=== PATIENT | male | born 1965 | race Caucasian/White ===

== ENCOUNTER 2017-03-27 20:42 | Inpatient (IN) ==
[2017-03-27] MEDS ORDERED: SODIUM CHLORIDE 0.9% 1,000 ML IV STA ×2 (21:21→22:46)
[2017-03-27] MEDS ORDERED: ONDANSETRON 4 MG/2 ML VIAL IV STA ×2 (21:21→22:46)
[2017-03-27] MEDS ORDERED: ONDANSETRON 4 MG/2 ML VIAL ONE ×2 (21:29→23:01)
[2017-03-27 21:32] LABS: Basophils % 0.4 % (0.0-0.8); Eosinophils % 0.1 % (0.00-10.9); Hematocrit 45.7 VOL% (42.0-52.0); Hemoglobin 15.8 GM/DL (14.0-18.0); Immature Granulocytes % 0.4 %; Immature Granulocytes Absolute 0.03 #; Lymphocytes # 0.6 10*3/uL (1.4-4.0); Lymphocytes % 7.2 % (21.2-54.2); Mean Corpuscular HGB Conc 34.6 GM/DL (32-36); Mean Corpuscular Hemoglobin 32 PG (27-34); Mean Corpuscular Volume 92.5 FL (87-102); Mean Platelet Volume 11.5 FL (9.6-12.0); Monocytes # 0.7 10*3/uL (0.11-0.8); Monocytes % 8.7 % (1.7-12.7); Neutrophils % 83.2 % (38.7-73.9); Platelet Count 99 T/CUMM (130-400); Red Blood Count 4.94 MC/CUMM (3.8-5.5); Red Cell Distribution Width 14.6 % (9.3-17.3); White Blood Count 8.4 T/CUMM (4-12)
[2017-03-27 21:44] LABS: Albumin 3.9 G/DL (3.4-5.0); Bilirubin,Total 1.5 MG/DL (0.2-1.0); Calcium 9.4 MG/DL (8.5-10.1); Osmolality,Calculated 264.7 MOS/KG (273-304); Total Protein 7.3 G/DL (6.4-8.3)
--- NOTE | 2017-03-27 22:02 | Emergency Department Note ---
Garth Carreon Rolonda, am scribing for, and in the presence of, Chantel Mack DO 21: 23. IFrederick Debra, DO, personally performed the services described in this documentation, ascribed by Eunice Liang in my presence, and it is both accurate and complete . Arrival - Arrival Chief Complaint: Nausea/Vomiting/Diarrhea Stated Complaint: n/v ED Nursing Triage Note: Pt in with complaint of n/v x1 day. Pt has no other complaints at time of triage. Pt was given 200ml of normal saline per ems. Mode of Arrival: Stretcher Limitations: No Limitations Source: Patient, Old Records Reviewed, RN Notes Reviewed - History of Present Illness HPI Narrative: Pt is a 51 y/o male who presents to the ED via EMS for further evaluation of N/V /D with an onset of x1 day. Pt has a PMHx of HIV, HTN, and Hepatitis B. Pt states that he has been dry-heaving since last night. He states that he has not eaten today and has been losing weight. Pt confirms associated sxs of weakness. At time of triage pt's temperature was 100.2. No other complaint/pain in ED. Onset (ago): day(s) Consistency: constant Severity: moderate Severity scale (1-10): 4 Allergies/Adverse Reactions: Allergies Allergy/AdvReac Type Severity Reaction Status Date / Time atovaquone Allergy Intermediate RASH Verified 03/27/17 20:53 trimethoprim [From Bactrim] Allergy Intermediate SHORTNESS Verified 03/27/17 20: 53 OF BREATH Sulfa (Sulfonamide Allergy Unknown/Unable Verified 03/27/17 20:53 Antibiotics) to obtain sulfamethoxazole Allergy Unknown/Unable Verified 03/27/17 20:53 to obtain Sulfonylureas Allergy Unknown/Unable Verified 03/27/17 20:53 to obtain Home Medications: Home Medications Medication Instructions Recorded Confirmed Type Acyclovir [Acyclovir Cap/Tab] 400 mg PO BID 09/09/16 09/09/16 History Dolutegravir Sodium [Tivicay] 50 mg PO QAM 09/09/16 09/09/16 History Gabapentin 300 mg PO BEDTIME 09/09/16 09/09/16 History Ritonavir [Norvir] 100 mg PO Q12H 09/09/16 09/09/16 History Saquinavir Mesylate [Invirase] 1,000 mg PO BID 09/09/16 09/09/16 History Tenofovir Disoproxil Fumarate 300 mg PO QAM 09/09/16 09/09/16 History [Viread] Bisacodyl Tab [Dulcolax Tab] 10 mg PO DAILY PRN #0 tablet 09/10/16 Rx Docusate Sodium Cap [Colace Cap] 100 mg PO BID capsule 09/10/16 Rx Enoxaparin [Lovenox] 40 mg SUBCUT Q24H syringe 09/10/16 Rx Morphine Inj 2 mg IV Q4H PRN #0 syringe 09/10/16 Rx Ondansetron Inj [Zofran Inj] 4 mg IV Q4H PRN #0 vial 09/10/16 Rx Promethazine Tab [Phenergan Tab] 25 mg PO Q6H PRN #0 tablet 09/10/16 Rx Rifaximin [Xifaxan] 550 mg PO BID tablet 09/10/16 Rx Sodium Phosphate Enema [Fleet 133 ml RECTAL DAILY PRN #0 bottle 09/10/16 Rx Enema] Zaleplon [Sonata] 5 mg PO BEDTIME PRN #0 capsule 09/10/16 Rx Review of System - Review of System 12 point system: reviewed and no additional remarkable complaints except as stated - Review of System Constitutional: Present: fever, weakness, weight loss. Absent: chills Eyes: Absent: discharge Head/Ears/Nose/Throat: Absent: earache Respiratory: Absent: cough Cardiovascular: Absent: chest pain Gastrointestinal: Present: nausea, vomiting, diarrhea Genitourinary male: Absent: dysuria Musculoskeletal: Absent: arm pain Skin: Absent: rash Neurological: Absent: headache Psychiatric: Absent: anxiety Endocrine: Absent: cold intolerance Hematological/Lymphatic: Absent: easy bleeding Allergic/Immunologic: Absent: facial swelling Medical,Surgical,& Family Hx - Medical History Cardio: History of: Hypertension (Portal Hypertension) Psychological: History of: Anxiety Disorders, Depression (takes zoloft) Neurology: History of: Seizures Respiratory: History of: Pulmonary Hypertension, Pneumonia Renal: History of: Renal Problems (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) Gastrointestinal: History of: Esophageal Varices, GERD, Hepatitis (hep b), Liver Problems (portal hypertension), GI Problems (liver cirrhosis, gastritis) Musculoskeletal: History of: Back/Neck Problems (lower back problems) Hematology: History of: Anemia, Clotting Problems (hx dvts) Other: History of: HIV, Miscellaneous Medical Problems (liver disease) - Surgical History HEENT Surgeries: Patient denies: Tonsilectomy & Adenoidectomy Abdominal Surgeries: Surgical HX of: Abdominal Surgery (laporascopic surgery- abdominal surgery 1 year ago), Colonoscopy, EGD - Family History Family History: Reports;: Family Cancer (mom-breast & colon, skin), Family Heart Disease (dad), Family Hypertension (mom and dad) Denies;: Family Anesthesia Reaction, Family Diabetes, Family Psychiatric Problems, Family Stroke - Social History Smoking Status: Never smoker Frequency of Alcohol Use: None Type of Drug Use: None Exam Vital Signs: Vital Signs Temperature 100.2 F H 03/27/17 20:43 Pulse Rate 77 03/27/17 20:43 Respiratory Rate 18 03/27/17 20:43 Blood Pressure 100/66 03/27/17 20:43 O2 Sat by Pulse Oximetry 100 03/27/17 20:43 - General General appearance: alert, in no apparent distress, cachectic - Head Head exam: Present: atraumatic, normocephalic - Eye Eye exam: Present: PERRL, EOMI - ENT ENT exam: Present: mucous membranes dry. Absent: mucous membranes moist - Neck Neck exam: Present: full ROM. Absent: tenderness - Chest Chest inspection: Present: symmetric chest wall rise. Absent: tenderness - Respiratory Respiratory exam: Present: normal lung sounds bilaterally. Absent: wheezes - Cardiovascular Cardiovascular exam: Present: normal rhythm, tachycardia - Abdominal Exam Abdominal exam: Present: tenderness (mild diffused) - Extremities Exam Extremities exam: Present: full ROM. Absent: tenderness - Back Exam Back exam: Present: full ROM. Absent: tenderness - Neurological Exam Neurological exam: Present: alert, oriented X3, CN II-XII intact - Psychiatric Psychiatric exam: Present: normal affect, normal mood - Skin Skin exam: Present: warm, dry, intact, normal color. Absent: rash Course Course Narrative: Spoke with hospitalist who will admit patient for nausea vomiting diarrhea. Patient does have an anion gap lactic acid was ordered. Patient stable at this time Results - Labs CBC & BMP: 03/27/17 20:47 03/27/17 20:47 Lab Results: I have reviewed the patients labs Disposition Clinical Impression: Gastroenteritis Case discussed with: patient Disposition: Still a Patient Condition: Stable Time of Disposition: 22:35
[2017-03-27] MEDS ORDERED: HYDROmorphone 2 MG/1 ML VIAL IV STA (22:46)
[2017-03-27] MEDS ORDERED: HYDROmorphone 2 MG/1 ML VIAL ONE (23:02)
[2017-03-27 23:39] LABS: Apearance,Urine Slightly Hazy (Clear); Bilirubin,Urine Negative (Negative); Blood, Urine Negative (Negative); Glucose,Urine (UA) 50 mg/dL (Negative); Ketones,Urine 80 mg/dL (Negative); Mucus,Urine Many /LPF (Occasional); Nitrite,Urine Negative (Negative); Protein,Urine 100 MG/DL; RBC,Urine 1 /HPF (0-4); Squamous Epithelial Cell,Urine Occasional /HPF (0-10); Urine Color Yellow (Yellow); Urine Specific Gravity 1.025 (1.001-1.035); Urine Urobilinogen < 2.0 EU/DL (0.2-1.0); WBC,Urine 2 /HPF (0-6)
--- NOTE | 2017-03-27 23:58 | Hospitalist History & Physical ---
<Brynn Zepeda - Last Filed: 03/27/17 23:46> Assessment and Plan (1) Dehydration Status: Acute Assessment and plan: Has received 2L of NS Will give an additional liter Maintenance infusion @ 150mL/hr Repeat lactate Will repeat Chemistry once lactate is cleared to check anion gap Will check serum ketones Current Visit: Yes (2) Abdominal pain Status: Acute Assessment and plan: CT abd/pelvis pending Will consult GI and surgery Pain and nausea medications PRN Current Visit: Yes Qualifiers: Abdominal location: generalized Qualified Code(s): R10.84 - Generalized abdominal pain (3) Fever Status: Acute Assessment and plan: Blood and urine cultures pending Febrile Will start Cipro 600mg IV Tylenol for fever PRN Current Visit: Yes (4) AIDS (acquired immunodeficiency syndrome), CD4 <=200 Status: Chronic Assessment and plan: Will obtain CD 4 count Current Visit: No (5) Cirrhosis Status: Chronic Current Visit: No (6) Malrotation of intestine Status: Chronic Current Visit: Yes History of Present Illness Chief complaint: nausea and vomiting History of present illness: Called to the ER for Mr. Zapien who is a 51 year old male that presents to the ED for diffuse abdominal pain, multiple episodes of nausea and vomiting that started last night. The vomiting and dry heaving continued throughout the day which made him seek medical treatment. In the ER, he received 2L of NS, Zofran 4mg IV x2 doses, and blood work. He was febrile of 102 upon presentation and slightly hypotensive with BP 90's. All of this blood work looks fairly normal compared to his baseline except for a lactate of 3.0. A CT abd/pelvis is pending. The patient has a history of HIV, nonalcoholic liver disease, DVT, portal hypertension, SBO, frozen abdomen, and PCP. He states his last CD4 count was 114 in January 2017 and is on HARRT medications. He has presented with abdominal pain here before and he was found to have a SBO. Surgery was consulted but was deemed inoperable due to cirrhosis and risk of bleeding to . He was transferred to [facility] for treatment. We will obtain records from this facility. He will be admitted under the hospitalist service. Home Medications Medication Instructions Recorded Confirmed Type Acyclovir [Acyclovir Cap/Tab] 400 mg PO BID 09/09/16 09/09/16 History Dolutegravir Sodium [Tivicay] 50 mg PO QAM 09/09/16 09/09/16 History Gabapentin 300 mg PO BEDTIME 09/09/16 09/09/16 History Ritonavir [Norvir] 100 mg PO Q12H 09/09/16 09/09/16 History Saquinavir Mesylate [Invirase] 1,000 mg PO BID 09/09/16 09/09/16 History Tenofovir Disoproxil Fumarate 300 mg PO QAM 09/09/16 09/09/16 History [Viread] Bisacodyl Tab [Dulcolax Tab] 10 mg PO DAILY PRN #0 tablet 09/10/16 Rx Docusate Sodium Cap [Colace Cap] 100 mg PO BID capsule 09/10/16 Rx Enoxaparin [Lovenox] 40 mg SUBCUT Q24H syringe 09/10/16 Rx Morphine Inj 2 mg IV Q4H PRN #0 syringe 09/10/16 Rx Ondansetron Inj [Zofran Inj] 4 mg IV Q4H PRN #0 vial 09/10/16 Rx Promethazine Tab [Phenergan Tab] 25 mg PO Q6H PRN #0 tablet 09/10/16 Rx Rifaximin [Xifaxan] 550 mg PO BID tablet 09/10/16 Rx Sodium Phosphate Enema [Fleet 133 ml RECTAL DAILY PRN #0 bottle 09/10/16 Rx Enema] Zaleplon [Sonata] 5 mg PO BEDTIME PRN #0 capsule 09/10/16 Rx Allergies Allergy/AdvReac Type Severity Reaction Status Date / Time atovaquone Allergy Intermediate RASH Verified 03/27/17 20:53 trimethoprim [From Bactrim] Allergy Intermediate SHORTNESS Verified 03/27/17 20: 53 OF BREATH Sulfa (Sulfonamide Allergy Unknown/Unable Verified 03/27/17 20:53 Antibiotics) to obtain sulfamethoxazole Allergy Unknown/Unable Verified 03/27/17 20:53 to obtain Sulfonylureas Allergy Unknown/Unable Verified 03/27/17 20:53 to obtain Medical,Surgical,& Family Hx - Medical History Cardio: History of: Hypertension (Portal Hypertension) Psychological: History of: Anxiety Disorders, Depression (takes zoloft) Neurology: History of: Seizures Respiratory: History of: Pulmonary Hypertension, Pneumonia Renal: History of: Renal Problems (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) Gastrointestinal: History of: Esophageal Varices, GERD, Hepatitis (hep b), Liver Problems (portal hypertension), GI Problems (liver cirrhosis, gastritis) Musculoskeletal: History of: Back/Neck Problems (lower back problems) Hematology: History of: Anemia, Clotting Problems (hx dvts) Other: History of: HIV, Miscellaneous Medical Problems (liver disease) - Surgical History HEENT Surgeries: Patient denies: Tonsilectomy & Adenoidectomy Abdominal Surgeries: Surgical HX of: Abdominal Surgery (laporascopic surgery- abdominal surgery 1 year ago), Colonoscopy, EGD - Family History Family History: Reports;: Family Cancer (mom-breast & colon, skin), Family Heart Disease (dad), Family Hypertension (mom and dad) Denies;: Family Anesthesia Reaction, Family Diabetes, Family Psychiatric Problems, Family Stroke - Social History Smoking Status: Never smoker Frequency of Alcohol Use: None Type of Drug Use: None Marital Status: Single Lives With:: Alone Functional capacity: independent ambulation - Constitutional Constitutional: Present: anorexia, chills, fatigue, fever(s), weakness, weight loss - EENT Eyes: Absent: blurry vision Nose, mouth and throat: Absent: dysphagia, hoarseness, sore throat - Cardiovascular Cardiovascular: Absent: chest pain at rest, chest pain with activity, claudication, diaphoresis, dyspnea on exertion - Respiratory Respiratory: Absent: cough, dyspnea - Gastrointestinal Gastrointestinal: Present: abdominal pain, nausea, vomiting. Absent: change in bowel habits, constipation - Genitourinary Genitourinary: Absent: difficulty urinating Exam - Constitutional Vitals: Period Temp Pulse Resp BP Sys/Bynum Pulse Ox Last 24 Hr 100.2 F-100.2 F 77-77 18-18 100-100/66-66 100 General appearance: mild distress, cachectic - Head Head exam: Present: normal inspection, normocephalic - Eye Eye exam: Present: EOMI Pupils: Present: DIANA, normal accommodation - Neck Neck exam: Present: normal inspection - Respiratory Respiratory exam: Present: clear to auscultation bilaterally. Absent: accessory muscle use (Respirations even and non-labored with symmterical rise and fall of chest noted. ) - Cardiovascular Cardiovascular exam: Present: regular rate and rhythm - GI/Abdominal GI/Abdominal exam: Present: distended, hypoactive bowel sounds, tenderness, soft - Extremities Exam Extremities exam: Present: normal inspection, normal capillary refill - Back Exam Back exam: Present: normal inspection - Neurological Exam Neurological exam: Present: alert (Able to answer questions appropriately. Makes good eye contact. ), oriented X3 - Psychiatric Psychiatric exam: Present: agitated - Skin Skin exam: Present: normal color, warm, dry, intact Results - Labs CBC & BMP: 03/27/17 20:47 03/27/17 20:47 Lab Results: I have reviewed the past 24 hour labs <Jarad Mayo - Last Filed: 03/28/17 02:36> Assessment and Plan (1) Partial small bowel obstruction Status: Acute Assessment and plan: I saw and examined the patient in conjunction with nurse practitioner Brynn Zepeda as above he has history of admission here back in October with similar problem at that time with small obstruction per as above he was found to have a frozen abdomen and was transferred to [facility] for further treatment. Patient says he was told there that nothing could be done for him. It apparently resolved. He presented today with the same symptoms. He also had a temperature to 100.2. Blood cultures have been ordered. Laboratories are unremarkable except for sodium of 131. Creatinine was 1.2. Abdominal CT shows small bowel obstruction plus venous thrombosis bilateral iliac and femoral veins. He has a history of DVT and is on Coumadin he states. We will continue this. INR is pending. If it is subtherapeutic will give full dose Lovenox until INR is therapeutic. Clindamycin was listed as 1 of his meds but says he has not been on it for some time. Unfortunately we still do not have an accurate list of his current medications. Order was placed to query his pharmacy tomorrow for a list. We will start Levaquin and Flagyl for his fever. Surgery has been consulted. Will consult ID as well. He was bolused 3 L normal saline. He is currently on normal saline at 150 an hour per we will cut this to 100 cc/h. On exam he is awake, alert. Mucous membranes orally are dry. Abdomen is mildly distended and mildly tender. Bowel sounds are present Current Visit: No History of Present Illness History of present illness: Mr. Zapien is a 51 year old male Exam - Constitutional Vitals: Period Temp Pulse Resp BP Sys/Bynum Pulse Ox Last 24 Hr 100.2 F-100.2 F 72-77 13-18 100-120/66-71 100-100 Results - Labs CBC & BMP: 03/27/17 20:47 03/27/17 20:47
[2017-03-28] MEDS ORDERED: ACETAMINOPHEN 325 MG TABLET PO PRN (00:32)
[2017-03-28] MEDS ORDERED: HYDROmorphone 2 MG/1 ML VIAL IV PRN (00:32)
[2017-03-28] MEDS ORDERED: SODIUM CHLORIDE 0.9% 1,000 ML IV SCH (00:32)
[2017-03-28] MEDS ORDERED: DOCUSATE SODIUM 100 MG CAPSULE PO PRN (00:32)
[2017-03-28] MEDS ORDERED: PROCHLORPERAZINE 5 MG TABLET PO PRN (00:35)
[2017-03-28] MEDS ORDERED: CLINDAMYCIN INJ 600 MG in PREMIX 1 EACH IV SCH (01:00)
[2017-03-28 02:25] LABS: Basophils % 0.4 % (0.0-0.8); Hematocrit 39.3 VOL% (42.0-52.0); Hemoglobin 13.6 GM/DL (14.0-18.0); Immature Granulocytes % 0.3 %; Immature Granulocytes Absolute 0.02 #; Lymphocytes # 0.7 10*3/uL (1.4-4.0); Lymphocytes % 10.1 % (21.2-54.2); Mean Corpuscular HGB Conc 34.6 GM/DL (32-36); Mean Corpuscular Hemoglobin 33 PG (27-34); Mean Corpuscular Volume 95.9 FL (87-102); Monocytes # 0.6 10*3/uL (0.11-0.8); Monocytes % 8.3 % (1.7-12.7); Neutrophils # 5.8 10*3/uL (1.4-7.4); Neutrophils % 80.9 % (38.7-73.9); Red Cell Distribution Width 14.8 % (9.3-17.3); White Blood Count 7.1 T/CUMM (4-12)
[2017-03-28 02:32] LABS: Platelet Count 90 T/CUMM (130-400)
[2017-03-28 02:38] LABS: INR 1.4; PT Patient Result 14.6 SECS; Partial Thromboplastin Time 29.1 SECS (0-40)
[2017-03-28 03:00] LABS: Albumin 3.3 G/DL (3.4-5.0); Bilirubin,Total 0.9 MG/DL (0.2-1.0); Calcium 8.2 MG/DL (8.5-10.1); Osmolality,Calculated 269.4 MOS/KG (273-304); Potassium 4.6 MMOL/L (3.5-5.1); Total Protein 6.2 G/DL (6.4-8.3)
[2017-03-28] MEDS: ONDANSETRON 4 MG/2 ML VIAL IV PRN ×4 (03:02→22:03)
[2017-03-28 03:10] LABS: Magnesium 1.9 MG/DL (1.8-2.4); Risk Ratio 2.39; Thyroid Stimulating Hormone 0.714 uIU/ml (0.358-3.74); VLDL CHOLESTEROL 17.2 MG/DL
[2017-03-28] MEDS: SODIUM CHLORIDE 0.9% 1,000 ML IV SCH ×3 (03:13→22:14)
[2017-03-28] MEDS: ENOXAPARIN 60 MG/0.6 ML SYRINGE SUBCUT SCH ×2 (03:13→16:02)
[2017-03-28] MEDS: LEVOFLOXACIN INJ 500 MG in PREMIX 1 EACH IV SCH (03:17)
[2017-03-28] MEDS: metroNIDAZOLE INJ 500 MG in PREMIX 1 EACH IV SCH ×4 (04:51→22:15)
[2017-03-28 07:00] LABS: INR 1.4; PT Patient Result 14.9 SECS
--- NOTE | 2017-03-28 08:24 | CT Report ---
Exam: CT abdomen and pelvis with and without intravenous contrast Exam date: 03/27/2017 10:46 PM Clinical History: 51 years,Male, right upper quadrant, abdominal pain, generalized Technique: Axial computed tomography images of the abdomen and pelvis with and without intravenous contrast. All CT scans at this facility use one or more dose reduction techniques. Automated exposure control, MA/KV adjustment per patient size (including targeted exam Square dose is matched to indication) or iterative reconstruction technique Comparison: September 09, 2016 Findings: Lower thorax: No acute pathology within the lung bases. Abdomen: Liver: Atrophic. Heterogeneous in attenuation and enhancement. No focal parenchymal abnormalities Gallbladder and bile ducts: Unremarkable. No calcified stones. No ductal dilatation. Pancreas: Pancreas is normal. Spleen: Spleen remains enlarged. Adrenals: No adrenal mass. Kidneys and ureters: Stable right hydronephrosis Stomach and bowel: There is again loops of dilated central small bowel within the upper to midabdomen with wall enhancement and trace edema within the adjacent mesentery. There is again mild gastric wall thickening, unchanged. Appendix: Not clearly visualized. No secondary findings to suggest appendicitis. Pelvis: Bladder: Mild urinary bladder wall thickening Reproductive: Unremarkable as visualized. Abdomen and pelvis: Intraperitoneal space: No pneumoperitoneum. No free intraperitoneal fluid Bones/joints: No acute osseous abnormality. Soft tissues: No mass Vasculature: No aortic aneurysm. Atheromatous calcifications noted along the aorta and branch vessels. Note is made of low attenuation within the bilateral femoral and iliac veins, venous thrombosis cannot be excluded. Gastric varices as well as recanalized umbilical vein is again noted Lymph nodes: No adenopathy Impression: 1. Dilated loops of enhancing small bowel within the midabdomen relatively unchanged in a configuration and appearance suggesting partial small bowel obstruction. Cannot exclude internal hernia 2. Cirrhosis with portal venous hypertension 3. Filling defects within the bilateral femoral and iliac veins, findings may represent flow artifact, cannot exclude venous thrombosis. Correlate with dedicated vascular ultrasound 4. Urinary bladder wall thickening, correlate with urinalysis for possible cystitis PROCEDURE INTERPRETED AT [facility] DEPARTMENT OF RADIOLOGY Final Report Signed by: Tutu Fortune
[2017-03-28] MEDS ORDERED: ENOXAPARIN 40 MG/0.4 ML SYRINGE SUBCUT SCH (09:00)
[2017-03-28] MEDS ORDERED: MAGNESIUM HYDROXIDE SUSP 30 ML UDCUP PO PRN (09:45)
[2017-03-28] MEDS ORDERED: MAGNESIUM HYDROXIDE SUSP 30 ML UDCUP PO ONE (09:45)
[2017-03-28] MEDS ORDERED: BISACODYL 5 MG TABLET PO ONE (09:49)
--- NOTE | 2017-03-28 09:52 | Event Note ---
CT abdomen and pelvis significant persistent moderate to severe dilatation and distortion of the proximal central small bowel, suggestive of persistent small bowel obstruction. In addition there was an unusual amount of stool in the colon. We will initiate an aggressive bowel management program. We will give milk of magnesia 60 mL, soapsuds enema to clear, and bisacodyl 15 mg p.o. We will reassess bowel status in a.m.
[2017-03-28] MEDS: PANTOPRAZOLE 40 MG TABLET PO SCH (09:54)
--- NOTE | 2017-03-28 10:52 | XRay Report ---
Portable chest Exam date: 03/28/2017 12:32 AM Indication: Shortness of breath, cough Comparison: August 18, 2015 Findings: Cardiomediastinal contours are normal. Lungs are clear bilaterally. No acute osseous abnormalities. Visualized upper abdomen demonstrates no acute pathology. Impression: Normal chest PROCEDURE INTERPRETED AT [facility] DEPARTMENT OF RADIOLOGY Final Report Signed by: Tutu Fortune
--- NOTE | 2017-03-28 11:26 | General Surgery Consult Note ---
Assessment and Plan - Time spent with patient Time spent with patient: Less than 30 minutes (1) Partial small bowel obstruction Status: Acute Assessment and plan: Impression: 1. Nausea and vomiting abdominal pain probably secondary to a partial small bowel obstruction. Recurrent 2. Moderate constipation Plan: 1. Observation IV fluids 2. Will discuss this case with Dr. Brown attempted surgery on him in the past ran to a great deal of bleeding. 3. Difficult to say that we can safely do surgery because of his risk of bleeding on this particular patient and attempt to try to take care of any blockages that he might have. Current Visit: No (2) History of HIV or AIDS Status: Chronic Assessment and plan: Impression: History of HIV infection Plans: Medical management Current Visit: No (3) Cirrhosis Status: Chronic Assessment and plan: Impression: 1. Cirrhosis with splenomegaly and gastric varices \Plan: Medical management but cautious option circulation of this situation because of the high risk of bleeding with any type of surgical intervention. Current Visit: No History of Present Illness Chief complaint: Recurrent nausea and vomiting and abdominal pain History of present illness: Mr. Zapien is a 51 year old male white male with cirrhosis and HIV who returns with a recurrent episode of nausea and vomiting going on for several days which he was admitted at this time. CT scan abdomen pelvis suggest partial bowel obstruction mid abdomen. Patient has a history of having cirrhosis with gastric varices and splenomegaly up at this point time. Etiology of this is unclear the patient indicates he was told he had malrotation. This apparently comes from the fact that he had had surgery by Dr. Spencer in 2015 but surgery could not be safely performed because of severe bleeding related to his liver. His clotting times look okay without being unusually abnormal at this point. Certainly his varices is a major concern probably can involve the small bowel also. He is nauseated at this time with some crampy pains although the bowel sounds sound fairly normal at this point. He apparently been given a bunch laxative making him more comfortable so we just got a hold on that right now see what he does keep him n.p.o. Will review the situation with to look on Wednesday to cannot figure out what was going on at the time he did surgery see if he can avoid picking back up. Home Medications Medication Instructions Recorded Confirmed Type Acyclovir [Acyclovir Cap/Tab] 400 mg PO BID 09/09/16 09/09/16 History Dolutegravir Sodium [Tivicay] 50 mg PO QAM 09/09/16 09/09/16 History Gabapentin 300 mg PO BEDTIME 09/09/16 09/09/16 History Ritonavir [Norvir] 100 mg PO Q12H 09/09/16 09/09/16 History Saquinavir Mesylate [Invirase] 1,000 mg PO BID 09/09/16 09/09/16 History Tenofovir Disoproxil Fumarate 300 mg PO QAM 09/09/16 09/09/16 History [Viread] Bisacodyl Tab [Dulcolax Tab] 10 mg PO DAILY PRN #0 tablet 09/10/16 Rx Docusate Sodium Cap [Colace Cap] 100 mg PO BID capsule 09/10/16 Rx Enoxaparin [Lovenox] 40 mg SUBCUT Q24H syringe 09/10/16 Rx Morphine Inj 2 mg IV Q4H PRN #0 syringe 09/10/16 Rx Ondansetron Inj [Zofran Inj] 4 mg IV Q4H PRN #0 vial 09/10/16 Rx Promethazine Tab [Phenergan Tab] 25 mg PO Q6H PRN #0 tablet 09/10/16 Rx Rifaximin [Xifaxan] 550 mg PO BID tablet 09/10/16 Rx Sodium Phosphate Enema [Fleet 133 ml RECTAL DAILY PRN #0 bottle 09/10/16 Rx Enema] Zaleplon [Sonata] 5 mg PO BEDTIME PRN #0 capsule 09/10/16 Rx Allergies Allergy/AdvReac Type Severity Reaction Status Date / Time atovaquone Allergy Intermediate RASH Verified 03/27/17 20:53 trimethoprim [From Bactrim] Allergy Intermediate SHORTNESS Verified 03/27/17 20: 53 OF BREATH Sulfa (Sulfonamide Allergy Unknown/Unable Verified 03/27/17 20:53 Antibiotics) to obtain sulfamethoxazole Allergy Unknown/Unable Verified 03/27/17 20:53 to obtain Sulfonylureas Allergy Unknown/Unable Verified 03/27/17 20:53 to obtain Medical,Surgical,& Family Hx - Medical History Cardio: History of: Hypertension (Portal Hypertension) Psychological: History of: Anxiety Disorders, Depression (takes zoloft) Neurology: History of: Seizures Respiratory: History of: Pulmonary Hypertension, Pneumonia No history of: Obstructive Sleep Apnea Renal: History of: Renal Problems (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) Gastrointestinal: History of: Esophageal Varices, GERD, Hepatitis (hep b), Liver Problems (portal hypertension), GI Problems (liver cirrhosis, gastritis) Musculoskeletal: History of: Back/Neck Problems (lower back problems) Hematology: History of: Anemia, Clotting Problems (hx dvts) Other: History of: HIV, Miscellaneous Medical Problems (liver disease) - Surgical History Cardiac Surgeries: Patient Denies: Femoral-Popliteal Bypass Graft, Cardiac Catheterization, Cardiac Surgery, Carotid Endarterectomy, Internal Defibrillator, Vascular Access Devices Thoracic Surgeries: Patient denies;: Lobectomy Neurologic Surgeries: Patient denies: Neurologic Surgery HEENT Surgeries: Patient denies: Carotid Endarterectomy, Tonsilectomy & Adenoidectomy Abdominal Surgeries: Surgical HX of: Abdominal Surgery (laporascopic surgery- abdominal surgery 1 year ago), Colonoscopy, EGD Patient denies: Splenectomy - Family History Family History: Reports;: Family Cancer (mom-breast & colon, skin), Family Heart Disease (dad), Family Hypertension (mom and dad) Denies;: Family Anesthesia Reaction, Family Diabetes, Family Psychiatric Problems, Family Stroke - Social History Smoking Status: Never smoker Frequency of Alcohol Use: None Type of Drug Use: None 12 point system: reviewed and no additional remarkable complaints except as stated Exam - Constitutional Vitals: Period Temp Pulse Resp BP Sys/Bynum Pulse Ox Last 24 Hr 97.2 F-100.2 F 71-77 13-18 100-120/62-90 71-100 General appearance: mild distress - Head Head exam: Present: normal inspection - ENT ENT exam: Present: normal exam Mouth exam: Absent: dry mucosa - Neck Neck exam: Present: normal inspection - Respiratory Respiratory exam: Present: clear to auscultation bilaterally, rales - Cardiovascular Cardiovascular exam: Present: RRR - GI/Abdominal GI/Abdominal exam: Present: distended (Epigastric), hypoactive bowel sounds, tenderness (Epigastric area), soft - Extremities Exam Extremities exam: Present: normal inspection - Back Exam Back exam: Present: normal inspection - Neurological Exam Neurological exam: Present: alert, oriented X3, CN II-XII intact - Skin Skin exam: Present: normal color, warm, dry Results - Labs CBC & BMP: 03/28/17 02:10 03/28/17 02:10 Lab Results: I have reviewed the past 24 hour labs - Diagnostic Findings Procedure: CT Abdomen and Pelvis: report reviewed by me
--- NOTE | 2017-03-28 11:45 | Gastrointestinal Consult Note ---
Assessment and Plan - Time spent with patient Time spent with patient: Greater than 30 minutes (1) Partial small bowel obstruction Status: Acute Current Visit: No (2) Cirrhosis Status: Chronic Current Visit: No (3) Other specified counseling Status: Acute Current Visit: Yes History of Present Illness History of present illness: Mr. Zapien is a 51 year old male Home Medications Medication Instructions Recorded Confirmed Type Acyclovir [Acyclovir Cap/Tab] 400 mg PO BID 09/09/16 09/09/16 History Dolutegravir Sodium [Tivicay] 50 mg PO QAM 09/09/16 09/09/16 History Gabapentin 300 mg PO BEDTIME 09/09/16 09/09/16 History Ritonavir [Norvir] 100 mg PO Q12H 09/09/16 09/09/16 History Saquinavir Mesylate [Invirase] 1,000 mg PO BID 09/09/16 09/09/16 History Tenofovir Disoproxil Fumarate 300 mg PO QAM 09/09/16 09/09/16 History [Viread] Bisacodyl Tab [Dulcolax Tab] 10 mg PO DAILY PRN #0 tablet 09/10/16 Rx Docusate Sodium Cap [Colace Cap] 100 mg PO BID capsule 09/10/16 Rx Enoxaparin [Lovenox] 40 mg SUBCUT Q24H syringe 09/10/16 Rx Morphine Inj 2 mg IV Q4H PRN #0 syringe 09/10/16 Rx Ondansetron Inj [Zofran Inj] 4 mg IV Q4H PRN #0 vial 09/10/16 Rx Promethazine Tab [Phenergan Tab] 25 mg PO Q6H PRN #0 tablet 09/10/16 Rx Rifaximin [Xifaxan] 550 mg PO BID tablet 09/10/16 Rx Sodium Phosphate Enema [Fleet 133 ml RECTAL DAILY PRN #0 bottle 09/10/16 Rx Enema] Zaleplon [Sonata] 5 mg PO BEDTIME PRN #0 capsule 09/10/16 Rx Allergies Allergy/AdvReac Type Severity Reaction Status Date / Time atovaquone Allergy Intermediate RASH Verified 03/27/17 20:53 trimethoprim [From Bactrim] Allergy Intermediate SHORTNESS Verified 03/27/17 20: 53 OF BREATH Sulfa (Sulfonamide Allergy Unknown/Unable Verified 03/27/17 20:53 Antibiotics) to obtain sulfamethoxazole Allergy Unknown/Unable Verified 03/27/17 20:53 to obtain Sulfonylureas Allergy Unknown/Unable Verified 03/27/17 20:53 to obtain Medical,Surgical,& Family Hx - Medical History Cardio: History of: Hypertension (Portal Hypertension) Psychological: History of: Anxiety Disorders, Depression (takes zoloft) Neurology: History of: Seizures Respiratory: History of: Pulmonary Hypertension, Pneumonia No history of: Obstructive Sleep Apnea Renal: History of: Renal Problems (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) Gastrointestinal: History of: Esophageal Varices, GERD, Hepatitis (hep b), Liver Problems (portal hypertension), GI Problems (liver cirrhosis, gastritis) Musculoskeletal: History of: Back/Neck Problems (lower back problems) Hematology: History of: Anemia, Clotting Problems (hx dvts) Other: History of: HIV, Miscellaneous Medical Problems (liver disease) - Surgical History Cardiac Surgeries: Patient Denies: Femoral-Popliteal Bypass Graft, Cardiac Catheterization, Cardiac Surgery, Carotid Endarterectomy, Internal Defibrillator, Vascular Access Devices Thoracic Surgeries: Patient denies;: Lobectomy Neurologic Surgeries: Patient denies: Neurologic Surgery HEENT Surgeries: Patient denies: Carotid Endarterectomy, Tonsilectomy & Adenoidectomy Abdominal Surgeries: Surgical HX of: Abdominal Surgery (laporascopic surgery- abdominal surgery 1 year ago), Colonoscopy, EGD Patient denies: Splenectomy - Family History Family History: Reports;: Family Cancer (mom-breast & colon, skin), Family Heart Disease (dad), Family Hypertension (mom and dad) Denies;: Family Anesthesia Reaction, Family Diabetes, Family Psychiatric Problems, Family Stroke - Social History Smoking Status: Never smoker Frequency of Alcohol Use: None Type of Drug Use: None Exam - Constitutional Vitals: Period Temp Pulse Resp BP Sys/Ybnum Pulse Ox Last 24 Hr 97.2 F-100.2 F 71-77 13-18 100-120/62-90 71-100 Results - Labs CBC & BMP: 03/28/17 02:10 03/28/17 02:10 Note Addendum: PLEASE NOTE -- automatic citation of patient information is unavoidable in this electronic note. I have made a reasonable effort to review the information cited , but it is not a part of my evaluation, impression, or recommendation unless specifically discussed in the dictated text that follows. As well, voice recognition software was used in the creation of this clinical note. Reasonable effort was made to identify and correct gross errors. Despite proofreading, errors in instrument worker may be present, including nonsense verbiage at times. If you encounter such an error, please contact me at for discussion and correction. -- Dinesh Chief complaint: abdominal pain History of present illness: This is a new patient, a 51-year-old male seen by consultation for evaluation of abdominal pain and suspected small bowel obstruction. The patient is admitted to the hospitalist service under the care of Dr. Melchor with a primary diagnosis of dehydration and abdominal pain. The patient was admitted through the emergency department last evening with primary complaint of nausea, vomiting, abdominal pain. Evaluation at that time revealed minimally elevated lactate with radiologic evidence of dilated small bowel suggesting partial small bowel obstruction. The patient reports his usual state of health prior to this past Wednesday when he began to feel bloated and nauseous. This progressed through the course of the day prompting him to seek medical care on Wednesday. Since admission, he has been treated with crystalloid resuscitation and antibiotic. He is not feeling much better at present with continued nausea. He has been seen by general surgery with some discussion of surgical management but more to follow on that. He does not have nasogastric decompression ongoing but has been told this will be forthcoming. He has not had a bowel movement and does not seem to be passing gas, best he can tell. He has had episodes such as this before that have always responded to decompression. Patient denies night sweats, rigors, headache, dizziness, neck pain, visual changes, redness of the eyes, dysphagia, odynophagia, difficulty chewing, chest pain, hematemesis, diarrhea, hematochezia, melena, proctalgia, constipation, dysuria, skin changes, temperature regulation issues, flushing, easy bleeding/ bruising, mental status change, numbness/weakness in the extremities, yellowing of the eyes/skin, cutaneous eruptions, family history of gastrointestinal cancer and colon polyps, and other complaints in general. Review of systems: 12 point review of systems was negative except as documented above. Outpatient medications: Viread, invirase, norvir, Rifaximin, Phenergen, Zofran, morphine, gabapentin, Lovenox, tivicay, Colace, Dulcolax, acyclovir Inpatient medications: Tylenol, Colace, Lovenox, [place], Dilaudid, levofloxacin, milk of magnesia, Flagyl, Zofran, Protonix, Compazine, normal saline infusion Past Medical History: human immunodeficiency virus, hypertension, anxiety disorder, depression, seizure disorder, pulmonary hypertension, pneumonia, chronic kidney disease, cirrhosis with portal hypertension, esophageal varices, gastroesophageal reflux disease, hepatitis B, chronic low back pain, deep venous thrombosis Social history: negative tobacco. Negative alcohol Family history: no gastrointestinal cancers Physical examination: Vital Signs: Current vital signs reviewed and documented above. General Appearance: lying in bed. Obviously uncomfortable. Emesis bag in hand. Head: Normocephalic. Neck: Palpation of the neck revealed no abnormalities. Eyes: No scleral icterus. No scleral injection. No conjunctival pallor. Oral Cavity: Odor of breath was normal. No drooling was observed. Lips showed no abnormalities. Floor of the mouth showed no abnormalities. Pharynx: Oropharynx was normal. Lungs: Respiration rhythm and depth was normal. Cardiovascular: Heart rate and rhythm were normal. Abdomen: abdomen was moderately distended. Abdominal palpation revealed mild tenderness and no hepatosplenomegaly. Ascites was not discovered. Abdominal auscultation revealed decreased bowel sounds. Musculoskeletal System: Musculoskeletal system was grossly normal. Neurological: level of consciousness was normal. Speech was normal. Skin: General appearance was normal. Color and pigmentation were normal. No skin lesions. Laboratory: hemoglobin 13.6, white blood count 7.1, MCV 96, platelets 90, INR 1.4, PT 14.9, ALT 36, AST 29, total bilirubin 0.9, albumin 3.3 Radiology: CT of the abdomen and pelvis, 03/27/17 -- [place] loops of enhancing small bowel in the mid-abdomen consistent with small bowel obstruction; cirrhosis with portal venous hypertension; filling defects in bilateral femoral and iliac veins; urinary bladder wall thickening Impressions: #1. Partial small bowel obstruction -- general surgery is consulting and considering surgical options. They have recommended supportive care including nasogastric decompression for now and this is reasonable in my opinion. There is no indication for endoscopic evaluation at present. #2. Cirrhosis -- the patient appears compensated at present. I recommend continued volume and electrolyte management with careful monitoring to avoid decompensation in the becky-surgical setting. #3. Other specified counseling -- The patient was seen for greater than 30 minutes. The patient was counseled for greater than 50% of this time regarding differential diagnosis, likely diagnosis, diagnostic and therapeutic alternatives, risks/benefits/alternatives of medications and procedures, and plan of care generally. The patient expressed understanding and wishes to proceed. Recommendations: -- continued resuscitation -- agree with nasogastric decompression -- agree with antibiotic -- further management per general surgery -- thank you for this consultation. Dr. Fraser will assume G.I. care for this patient tomorrow
[2017-03-28] MEDS ORDERED: PROMETHAZINE 25 MG/1 ML VIAL IM ONE (12:46)
--- NOTE | 2017-03-28 17:27 | XRay Report ---
Portable chest Exam date: 03/28/2017 4:58 PM Indication: Shortness of breath, cough Comparison: Not available Findings: Limited study. Exclusion of the lung apices Cardiomediastinal contours are normal. Visualized lung parenchyma is well aerated. Satisfactory placement of esophageal gastric tube extending over the right upper abdomen. No acute osseous abnormalities. Visualized upper abdomen demonstrates no acute pathology. Impression: Satisfactory esophageal gastric tube placement PROCEDURE INTERPRETED AT [facility] DEPARTMENT OF RADIOLOGY Final Report Signed by: Tutu Fortune
[2017-03-28] MEDS ORDERED: PROMETHAZINE 25 MG/1 ML VIAL IM PRN (19:32)
[2017-03-29] MEDS: ENOXAPARIN 60 MG/0.6 ML SYRINGE SUBCUT SCH ×2 (03:21→15:09)
[2017-03-29] MEDS: LEVOFLOXACIN INJ 500 MG in PREMIX 1 EACH IV SCH (03:22)
[2017-03-29] MEDS: metroNIDAZOLE INJ 500 MG in PREMIX 1 EACH IV SCH ×4 (04:50→21:30)
[2017-03-29 06:19] LABS: Basophils % 0.3 % (0.0-0.8); Eosinophils % 0.6 % (0.00-10.9); Hematocrit 35.3 VOL% (42.0-52.0); Immature Granulocytes % 0.6 %; Immature Granulocytes Absolute 0.02 #; Lymphocytes # 0.5 10*3/uL (1.4-4.0); Lymphocytes % 14.8 % (21.2-54.2); Mean Corpuscular Hemoglobin 32 PG (27-34); Mean Corpuscular Volume 95.1 FL (87-102); Mean Platelet Volume 11.6 FL (9.6-12.0); Monocytes # 0.4 10*3/uL (0.11-0.8); Monocytes % 10.4 % (1.7-12.7); Neutrophils # 2.6 10*3/uL (1.4-7.4); Neutrophils % 73.3 % (38.7-73.9); Red Blood Count 3.71 MC/CUMM (3.8-5.5); Red Cell Distribution Width 14.7 % (9.3-17.3); White Blood Count 3.6 T/CUMM (4-12)
[2017-03-29 06:23] LABS: Platelet Count 74 T/CUMM (130-400)
[2017-03-29 06:35] LABS: INR 1.7; PT Patient Result 17.6 SECS
[2017-03-29 06:56] LABS: Albumin 2.8 G/DL (3.4-5.0); Bilirubin,Total 1.3 MG/DL (0.2-1.0); Calcium 8.3 MG/DL (8.5-10.1); Hypochromasia Slight; Magnesium 2.1 MG/DL (1.8-2.4); Osmolality,Calculated 278.5 MOS/KG (273-304); Phosphorous 1.6 MG/DL (2.5-4.9); Platelet Estimate Decreased; Total Protein 5.4 G/DL (6.4-8.3)
[2017-03-29 06:57] LABS: Ovalocytes Slight
--- NOTE | 2017-03-29 08:14 | XRay Report ---
History: COPD Date: 03/29/2017 Study: Chest x-ray AP portable Comparison exam: 03/28/2017 The nasogastric tube is well positioned with its tip overlying the region of the distal stomach. The cardiomediastinal silhouette and pulmonary vasculature are stable. The lungs and pleural spaces remain generally clear. Osseous structures are unchanged. Impression: No acute cardiopulmonary process. Nasogastric tube. No interval changes otherwise PROCEDURE INTERPRETED AT [facility] DEPARTMENT OF RADIOLOGY Final Report Signed by: Dr. Stephanie Ta
--- NOTE | 2017-03-29 09:01 | Gastrointestinal Progress Note ---
<Neva Garciaher Chelle - Last Filed: 03/29/17 08:54> Assessment and Plan (1) Partial small bowel obstruction Status: Acute Assessment and plan: 03/29-several day history of nausea vomiting abdominal pain with findings of small bowel obstruction on CT. NG decompression now with bowel sounds and small bowel movement/flatus. Nausea vomiting improved. Surgery is following at this time. Continue to monitor. Plan an addendum to followed by Dr. Fraser. Current Visit: No Gastroenterology - PN: Subj Interval history: CC: Small bowel obstruction Patient is seen, awake and alert. States he is feeling some better today. He was admitted on 03/27 with complaints of abdominal pain, nausea and vomiting that started abruptly on the day of admission. He has a prior history of multiple small bowel obstructions in the past. He also has a history of HIV as well as nonalcoholic cirrhosis. He has been followed at [facility] in the past for his prior small bowel obstructions as well as followed in our facility by her surgeons. He has an inoperable frozen abdomen and is treated with NG decompression. He states that this small bowel obstruction feels very similar to the ones in the past. He does state that he felt like he was dehydrated prior to admission from nausea and vomiting. He was noted to be febrile last night up to 100.6. Blood cultures are negative at this time. He does state that he is feeling some better this morning and has had a very small bowel movement as well as passing flatus. He has no nausea. He has had approximately a liter of NG output since admission on Wednesday however this has decreased since this time. Abdomen is soft, bowel sounds are noted with no tenderness with palpation. ROS: Denies shortness of breath or chest Exam (Progress Note) - Constitutional Vitals: Period Temp Pulse Resp BP Sys/Bynum Pulse Ox Last 24 Hr 97.9 F-100.6 F 66-91 15-20 101-134/60-78 98-99 General appearance: normal weight, no acute distress - Head Head exam: Present: normal inspection, normocephalic - Eye Eye exam: Present: other (Lids and conjunctive are unremarkable). Absent: scleral icterus - ENT ENT exam: Present: normal exam, normal oropharynx - Neck Neck exam: Present: normal inspection - Respiratory Respiratory exam: Present: clear to auscultation bilaterally. Absent: rales, rhonchi, wheezes - Cardiovascular Cardiovascular exam: Present: regular rate and rhythm. Absent: diastolic murmur , JVD, systolic murmur - GI/Abdominal GI/Abdominal exam: Present: normal bowel sounds, soft. Absent: ascites, distended, mass, organomegaly, tenderness - Extremities Exam Extremities exam: Present: normal inspection, full ROM - Back Exam Back exam: Present: normal inspection - Neurological Exam Neurological exam: Present: alert, oriented X3 - Psychiatric Psychiatric exam: Present: normal affect, normal mood - Skin Skin exam: Present: normal color, warm, dry Results - Labs CBC & BMP: 03/29/17 04:35 03/29/17 04:35 Lab Results: I have reviewed the past 24 hour labs - Diagnostic Findings Procedure: CT Abdomen and Pelvis: report reviewed by me <Han Fraser - Last Filed: 03/29/17 20:38> Exam (Progress Note) - Constitutional Vitals: Period Temp Pulse Resp BP Sys/Bynum Pulse Ox Last 24 Hr 97.4 F-100.6 F 66-87 15-21 94-114/55-73 7-99 Results - Labs CBC & BMP: 03/29/17 04:35 03/29/17 04:35
[2017-03-29] MEDS: PANTOPRAZOLE 40 MG TABLET PO SCH (09:23)
--- NOTE | 2017-03-29 13:09 | Infectious Disease Consult ---
Assessment and Plan (1) Bacteriuria Status: Acute Assessment and plan: Gram-positive cocci isolated from urine however his urinalysis was negative for pyuria. Recommendations: Antibiotic therapy for asymptomatic bacteriuria not indicated. Current Visit: Yes (2) Fever Status: Acute Assessment and plan: Low-grade fever which has been persistent. Could be related to his bowel obstruction. Positive urine culture is not significant given the negative UA. Blood cultures negative today. Recommendations: Monitor temperature curve. Patient on Flagyl and levofloxacin presumably for the bowel obstruction and I will leave those for now. Current Visit: Yes (3) Partial small bowel obstruction Status: Acute Current Visit: No (4) AIDS (acquired immunodeficiency syndrome), CD4 <=200 Status: Chronic Assessment and plan: Seemingly controlled in terms of undetectable viral load. Seems that his steady -state CD4 count is just above 100. Recommendations: Patient is currently n.p.o. and so we cannot give antiretroviral therapy. Further we only have 3 of his 4 antiretroviral medications. We will need to obtain all of his medicines before we start them. Thank you very much for the consult. Will follow. Discussed with Dr. Min Current Visit: No History of Present Illness Chief complaint: HIV infection History of present illness: Mr. Zapien is a 51 year old male with long-standing HIV for the past 20 years. He follows with the HIV clinic in [place] and says his viral load has been undetectable but CD4 count has been below 200, last being just above 100 in January. He hasn't had any opportunistic infections in several years. He tells me that The patient has a history of chronic abdominal discomfort waxing and waning with episodes of distention and pain along with nausea. These episodes always resolve spontaneously. He has had several admissions for partial bowel obstruction. 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 He has had a few admissions since then but bowel obstruction was managed conservatively. The patient was relatively well until a few days prior to admission when he started having nausea and vomiting along with significant abdominal discomfort. Because of how ill he felt he decided to come to the emergency room and he was admitted. No fever at home however he had T-max here of 100.6. He was assessed as having a partial small bowel obstruction. The patient was taking his antiretroviral medications up until when he started vomiting at home. Currently he has an NG tube hooked up to low wall suction. Home Medications Medication Instructions Recorded Confirmed Type Acyclovir [Acyclovir Cap/Tab] 400 mg PO BID 09/09/16 03/29/17 History Dolutegravir Sodium [Tivicay] 50 mg PO QAM 09/09/16 03/29/17 History Gabapentin 300 mg PO BEDTIME 09/09/16 03/29/17 History Ritonavir [Norvir] 100 mg PO Q12H 09/09/16 03/29/17 History Saquinavir Mesylate [Invirase] 1,000 mg PO BID 09/09/16 03/29/17 History Tenofovir Disoproxil Fumarate 300 mg PO QAM 09/09/16 03/29/17 History [Viread] Bisacodyl Tab [Dulcolax Tab] 10 mg PO DAILY PRN #0 tablet 09/10/16 03/29/17 Rx Docusate Sodium Cap [Colace Cap] 100 mg PO BID capsule 09/10/16 03/29/17 Rx Promethazine Tab [Phenergan Tab] 25 mg PO Q6H PRN #0 tablet 09/10/16 03/29/17 Rx Rifaximin [Xifaxan] 550 mg PO BID tablet 09/10/16 03/29/17 Rx Sodium Phosphate Enema [Fleet 133 ml RECTAL DAILY PRN #0 bottle 09/10/16 Rx Enema] Warfarin Sodium [Warfarin Sodium] 4 mg PO QOTHER DAY 03/29/17 03/29/17 History Warfarin Sodium [Warfarin Sodium] 5 mg PO QOTHER DAY 03/29/17 03/29/17 History Allergies Allergy/AdvReac Type Severity Reaction Status Date / Time atovaquone Allergy Intermediate RASH Verified 03/27/17 20:53 trimethoprim [From Bactrim] Allergy Intermediate SHORTNESS Verified 03/27/17 20: 53 OF BREATH Sulfa (Sulfonamide Allergy Unknown/Unable Verified 03/27/17 20:53 Antibiotics) to obtain sulfamethoxazole Allergy Unknown/Unable Verified 03/27/17 20:53 to obtain Sulfonylureas Allergy Unknown/Unable Verified 03/27/17 20:53 to obtain 12 point system: reviewed and no additional remarkable complaints except as stated (Per HPI) Medical,Surgical,& Family Hx - Medical History Cardio: History of: Hypertension (Portal Hypertension) Psychological: History of: Anxiety Disorders, Depression (takes zoloft) Neurology: History of: Seizures Respiratory: History of: Pulmonary Hypertension, Pneumonia No history of: Obstructive Sleep Apnea Renal: History of: Renal Problems (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) Gastrointestinal: History of: Esophageal Varices, GERD, Hepatitis (hep b), Liver Problems (portal hypertension), GI Problems (liver cirrhosis, gastritis) Musculoskeletal: History of: Back/Neck Problems (lower back problems) Hematology: History of: Anemia, Clotting Problems (hx dvts) Other: History of: HIV, Miscellaneous Medical Problems (liver disease) - Surgical History Cardiac Surgeries: Patient Denies: Femoral-Popliteal Bypass Graft, Cardiac Catheterization, Cardiac Surgery, Carotid Endarterectomy, Internal Defibrillator, Vascular Access Devices Thoracic Surgeries: Patient denies;: Lobectomy Neurologic Surgeries: Patient denies: Neurologic Surgery HEENT Surgeries: Patient denies: Carotid Endarterectomy, Tonsilectomy & Adenoidectomy Abdominal Surgeries: Surgical HX of: Abdominal Surgery (laporascopic surgery- abdominal surgery 1 year ago), Colonoscopy, EGD Patient denies: Splenectomy - Family History Family History: Reports;: Family Cancer (mom-breast & colon, skin), Family Heart Disease (dad), Family Hypertension (mom and dad) Denies;: Family Anesthesia Reaction, Family Diabetes, Family Psychiatric Problems, Family Stroke - Social History Smoking Status: Never smoker Frequency of Alcohol Use: None Type of Drug Use: None Infectious Disease Exam H&P - Constitutional Vitals: Vital Signs Temp Pulse Resp BP Pulse Ox 98.4 F 70 21 110/61 98 03/29/17 11:14 03/29/17 11:14 03/29/17 11:14 03/29/17 11:14 03/29/17 11:14 Intake and Output 03/28/17 03/29/17 03/29/17 23:59 07:59 15:59 Intake Total 1100 / 1100 300 / 300 Balance 1100 / 1100 300 / 300 Intake: IV 1100 / 1100 300 / 300 Levaquin Inj 500 mg In 100 / 100 Premix 1 Each @ 100 mls/ hr IV Q24H [facility] Rx#: [id number] Ns 1,000 ml @ 100 mls/hr 1000 / 1000 IV .Q10H YEIMY Rx#: [id number] Flagyl Inj 500 mg In 100 / 100 200 / 200 Premix 1 Each @ 100 mls/ hr IV Q6H [facility] Rx#: [id number] Other: Voiding Method Toilet # Voids 2 2 # Bowel Movements 1 Exam: General: Patient uncomfortable mainly because of the presence of an NG tube HEENT: Mucous membranes pink and moist, anicteric acyanotic, DIANA, no oral exudates Neck: Supple, no thyroid gland enlargement Respiratory system: Breath sounds vesicular, no crepitations or wheezes Cardiovascular: Normal S1 and S2, no murmurs appreciated Abdomen: Normal bowel sounds, soft nontender throughout, no organomegaly or mass Genitourinary: No suprapubic pain or bladder distention Extremities: no edema Skin: No rash Reports - Labs CBC & BMP: 03/29/17 04:35 03/29/17 04:35 Labs: Laboratory Results - last 24 hr 03/29/17 03/29/17 03/29/17 04:35 04:35 04:35 WBC 3.6 L D RBC 3.71 L Hgb 12.0 L Hct 35.3 L MCV 95.1 MCH 32 MCHC 34.0 RDW 14.7 Plt Count 74 L MPV 11.6 Neut % (Auto) 73.3 Lymph % (Auto) 14.8 L [place] % (Auto) 10.4 Eos % (Auto) 0.6 Baso % (Auto) 0.3 Neut # (Auto) 2.6 Lymph # (Auto) 0.5 L [place] # (Auto) 0.4 Eos # (Auto) 0.0 Baso # (Auto) 0.0 Immature Gran % 0.6 Nucleated RBC % 0.0 Immature Gran # 0.02 Nucleated RBCs # 0.00 Platelet Estimate Decreased Immature Plt Fraction 0.0 Hypochromasia Slight Ovalocytes Slight Morphology Comment INR 1.7 PT Patient/Control Mix 17.6 Sodium 139 Potassium 4.0 Chloride 107 Carbon Dioxide 26 Anion Gap 10.0 BUN 18 Creatinine 0.90 GFR Calculation 94 BUN/Creatinine Ratio 20.00 Glucose 105 Calculated Osmolality 278.5 Calcium 8.3 L Phosphorus 1.6 L Magnesium 2.1 Total Bilirubin 1.30 H AST 37 ALT 30 Alkaline Phosphatase 100 Total Protein 5.4 L Albumin 2.8 L Globulin 2.6 Albumin/Globulin Ratio 1.0 L - Reports Microbiology: Microbiology 03/28/17 06:54 Urine Culture - Preliminary Urine,Voided Gram Positive Cocci 03/28/17 02:10 Blood Culture - Preliminary Blood No growth at 1 day 03/28/17 02:10 Blood Culture - Preliminary Blood No growth at 1 day - Diagnostic Findings Procedure: Chest x-ray: report reviewed by me (No acute pathology)
--- NOTE | 2017-03-29 13:46 | General Surgery Progress Note ---
Assessment and Plan (1) Partial small bowel obstruction Status: Acute Assessment and plan: Appears to be resolving with nonoperative management. The patient is passing gas and having bowel movements today. Continue NG tube for today and encourage ambulation. Current Visit: No Subjective Patient reports: Present: no new complaints, feels better, pain is less, flatus , bowel movement, afebrile Exam - Constitutional Vitals: Period Temp Pulse Resp BP Sys/Bynum Pulse Ox Last 24 Hr 97.9 F-100.6 F 66-91 15-21 101-134/60-78 98-99 General appearance: normal weight, no acute distress - Head Head exam: Present: normal inspection, normocephalic - Eye Eye exam: Present: EOMI Pupils: Present: DIANA - ENT ENT exam: Present: normal exam Mouth exam: Present: normal external inspection - Neck Neck exam: Present: normal inspection, trachea midline - Respiratory Respiratory exam: Present: clear to auscultation bilaterally. Absent: accessory muscle use, chest wall tenderness - Cardiovascular Cardiovascular exam: Present: RRR. Absent: systolic murmur, tachycardia - GI/Abdominal GI/Abdominal exam: Present: normal bowel sounds, soft. Absent: tenderness, rebound - Extremities Exam Extremities exam: Present: normal inspection, normal capillary refill - Back Exam Back exam: Present: normal inspection - Neurological Exam Neurological exam: Present: alert, oriented X3 Speech: Present: normal - Skin Skin exam: Present: normal color, warm Results - Labs CBC & BMP: 03/29/17 04:35 03/29/17 04:35 - Diagnostic Findings Procedure: CT Abdomen and Pelvis: image reviewed by me, report reviewed by me
--- NOTE | 2017-03-29 14:04 | Hospitalist Progress Note ---
Assessment and Plan (1) Partial small bowel obstruction Status: Acute Assessment and plan: 1)partial SBO- NGT has provided relief. Per Dr Spencer continue it through tonight and reassess in am as it appears to be resolving. 2)HIV- start meds when all available 3)low platelets. 4)low phosphorus- replace 5)cirrhosis Current Visit: No (2) Hypophosphatemia Status: Acute Current Visit: Yes (3) History of HIV or AIDS Status: Chronic Current Visit: No (4) Cirrhosis Status: Chronic Current Visit: No (5) Thrombocytopenia Status: Acute Current Visit: No Hospitalist: Subjective Interval history: Mr Zapien is feeling much better today. He has had BM this morning and continues to have flatus. He is no longer nauseated since NGT was placed- the output has decreased. He does not have his HIV meds, so the pharmacy sent 3 of them but not the 4th. If we can get the 4th we can restart them all but will not start any unless all can be given. I have coordinated care with Dr Eason. Exam - Constitutional Vitals: Period Temp Pulse Resp BP Sys/Bynum Pulse Ox Last 24 Hr 97.9 F-100.6 F 66-91 15-21 101-134/60-78 98-99 General appearance: normal weight, no acute distress - Eye Eye exam: Present: EOMI. Absent: scleral icterus - Respiratory Respiratory exam: Present: clear to auscultation bilaterally - Cardiovascular Cardiovascular exam: Present: regular rate and rhythm - GI/Abdominal GI/Abdominal exam: Present: normal bowel sounds, soft. Absent: tenderness - Extremities Exam Extremities exam: Absent: edema Results - Labs CBC & BMP: 03/29/17 04:35 03/29/17 04:35 Lab Results: I have reviewed the past 24 hour labs
[2017-03-29] MEDS: SODIUM CHLORIDE 0.9% 1,000 ML IV SCH (14:46)
[2017-03-29] MEDS ORDERED: SODIUM PHOSPHATE ENEMA 133 ML BOTTLE RECTAL PRN (15:03)
[2017-03-29] MEDS ORDERED: BISACODYL 5 MG TABLET PO PRN (15:03)
[2017-03-29] MEDS ORDERED: PROMETHAZINE 25 MG TABLET PO PRN (15:03)
[2017-03-29] MEDS ORDERED: RITONAVIR 100 MG PO SCH (15:15)
--- NOTE | 2017-03-29 17:12 | XRay Report ---
EXAM: XR KUB CLINICAL INDICATION: Abdominal Pain COMPARISON: September 10, 2016 Findings: No gastric distention. Esophageal gastric tube in satisfactory position. No abnormally dilated small bowel loops are identified to suggest obstruction. No free intraperitoneal air. Stool dispersed throughout the colon. Visceral shadows are normal. No abnormal focal soft tissue masses or calcific densities identified in the abdomen or pelvis. IMPRESSION: Constipation PROCEDURE INTERPRETED AT [facility] DEPARTMENT OF RADIOLOGY Final Report Signed by: Tutu Fortune
[2017-03-29] MEDS: POTASSIUM PHOS/SOD PHOS POWDER 250 MG PACK PO SCH ×2 (20:49→22:05)
[2017-03-29] MEDS: RITONAVIR 100 MG PO SCH (20:49)
[2017-03-29] MEDS: [UNRECOGNIZED DRUG - OTHER] PO SCH (20:50)
[2017-03-29] MEDS: RIFAXIMIN 550 MG TABLET PO SCH (20:51)
[2017-03-29] MEDS ORDERED: GABAPENTIN 300 MG CAPSULE PO SCH (21:00)
[2017-03-29] MEDS: DOCUSATE SODIUM 100 MG CAPSULE PO SCH (21:28)
[2017-03-29] MEDS: ACYCLOVIR 200 MG CAPSULE PO SCH (21:28)
[2017-03-30] MEDS: SODIUM CHLORIDE 0.9% 1,000 ML IV SCH ×3 (02:11→16:02)
[2017-03-30] MEDS: LEVOFLOXACIN INJ 500 MG in PREMIX 1 EACH IV SCH (02:13)
[2017-03-30] MEDS: metroNIDAZOLE INJ 500 MG in PREMIX 1 EACH IV SCH ×3 (04:30→16:01)
[2017-03-30] MEDS: ENOXAPARIN 60 MG/0.6 ML SYRINGE SUBCUT SCH ×2 (04:31→15:59)
[2017-03-30 05:45] LABS: Basophils % 0.7 % (0.0-0.8); Eosinophils % 0.7 % (0.00-10.9); Hematocrit 32.9 VOL% (42.0-52.0); Hemoglobin 11.2 GM/DL (14.0-18.0); Immature Granulocytes % 0.4 %; Immature Granulocytes Absolute 0.01 #; Lymphocytes # 0.5 10*3/uL (1.4-4.0); Lymphocytes % 16.8 % (21.2-54.2); Mean Corpuscular Hemoglobin 33 PG (27-34); Mean Corpuscular Volume 95.6 FL (87-102); Mean Platelet Volume 11.5 FL (9.6-12.0); Monocytes # 0.3 10*3/uL (0.11-0.8); Monocytes % 9.3 % (1.7-12.7); Neutrophils % 72.1 % (38.7-73.9); Red Blood Count 3.44 MC/CUMM (3.8-5.5); Red Cell Distribution Width 14.6 % (9.3-17.3); White Blood Count 2.8 T/CUMM (4-12)
[2017-03-30 05:50] LABS: Platelet Count 59 T/CUMM (130-400)
[2017-03-30 06:08] LABS: Microcytosis 1+; Ovalocytes Few
[2017-03-30 06:09] LABS: Calcium 7.9 MG/DL (8.5-10.1); Osmolality,Calculated 274.7 MOS/KG (273-304); Platelet Estimate Decreased; Potassium 3.4 MMOL/L (3.5-5.1)
[2017-03-30 06:27] LABS: INR 1.8; PT Patient Result 19.8 SECS
[2017-03-30] MEDS ORDERED: FUROSEMIDE 40 MG/4 ML VIAL IV ONE (07:58)
[2017-03-30] MEDS: RITONAVIR 100 MG PO SCH (08:57)
[2017-03-30] MEDS: [UNRECOGNIZED DRUG - OTHER] PO SCH (08:58)
[2017-03-30] MEDS: DOCUSATE SODIUM 100 MG CAPSULE PO SCH (08:59)
[2017-03-30] MEDS: PANTOPRAZOLE 40 MG TABLET PO SCH (08:59)
[2017-03-30] MEDS: RIFAXIMIN 550 MG TABLET PO SCH (08:59)
[2017-03-30] MEDS: ACYCLOVIR 200 MG CAPSULE PO SCH (08:59)
[2017-03-30] MEDS: POTASSIUM PHOS/SOD PHOS POWDER 250 MG PACK PO SCH (08:59)
[2017-03-30] MEDS ORDERED: DOLUTEGRAVIR SODIUM 50 MG PO SCH ×2 (09:00)
[2017-03-30] MEDS ORDERED: TENOFOVIR DISOPROXIL FUMARATE 300 MG PO SCH ×2 (09:00)
--- NOTE | 2017-03-30 10:40 | Discharge Summary ---
<Patti Og - Last Filed: 03/30/17 10:43> Hospital Course - Hospital Course Hospital Course: Mr. Zapien is a 51-year-old male patient with a history of HIV, nonalcoholic liver disease, DVT, portal hypertension, and SBO, presented to the ED on 03/27 with complaints of diffuse abdominal pain and multiple episodes of nausea and vomiting. On presentation, the patient was febrile with a temperature of 100.2 slightly hypotensive, systolic BPs in the 90s, and lactate of 3.0. CT of the abdomen confirmed partial small bowel obstruction in the mid abdomen. Patient was admitted to the hospitalist service for further evaluation and treatment. Patient received supportive care, IV fluid hydration, and monitoring of electrolytes and renal function. Patient also has a nasogastric tube placed. During patient's stay he has been seen by general surgery, GI, and infectious disease services. In the past patient was unable to have any operative interventions due to cirrhosis and risk of bleeding to . Surgery was unsure of initiating any intervention due to same risk. Pt's condition started to resolve with nonoperative management. GI saw patient briefly and agree with management of symptoms. They signed off. Infectious disease was consulted to evaluate patient because urine culture was positive for gram-positive cocci and because of patient's history of HIV. Positive blood cultures negative. Patient was n.p.o. therefore no antiretroviral therapy was started. Mr Zapien has done well after treatment for partial bowel obstruction. The NGT has been removed and he is tolerating a regular diet. He will be discharged home and continue his home medicines. He will follow up with his HIV doctor. Specialty Discharge - Follow Up or Referrals Follow up with: Your, HIV doctor [Other] Discharge Plan - Discharge Data Disposition: Disch To Home/Self Care - Discharge Medications Continue Tenofovir Disoproxil Fumarate [Viread] 300 mg PO QAM Saquinavir Mesylate [Invirase] 1,000 mg PO BID Gabapentin 300 mg PO BEDTIME Acyclovir [Acyclovir Cap/Tab] 400 mg PO BID Bisacodyl Tab [Dulcolax Tab] 10 mg PO DAILY PRN #0 tablet PRN Reason: Constipation Docusate Sodium Cap [Colace Cap] 100 mg PO BID capsule Promethazine Tab [Phenergan Tab] 25 mg PO Q6H PRN #0 tablet PRN Reason: Nausea Rifaximin [Xifaxan] 550 mg PO BID tablet Warfarin Sodium 5 mg PO QOTHER DAY Warfarin Sodium 4 mg PO QOTHER DAY Ritonavir [Norvir] 100 mg PO Q12H Dolutegravir Sodium [Tivicay] 50 mg PO QAM Sodium Phosphate Enema [Fleet Enema] 133 ml RECTAL DAILY PRN #0 bottle PRN Reason: Constipation - Follow Up or Referral - Forms/Instructions Exam - Constitutional Vitals: Period Temp Pulse Resp BP Sys/Bynum Pulse Ox Last 24 Hr 97.4 F-99.0 F 68-75 18-20 94-102/55-65 97-99 Discharge Results Procedures and tests throughout hospitalization: Pending Orders 03/28/17 02:09 CD4 T-Cell Count Stat 03/28/17 02:10 Blood Culture Stat 03/28/17 06:54 Urine Culture Stat 03/31/17 04:00 Prothrombin Time INR IN AM 04/01/17 04:00 Prothrombin Time INR IN AM 04/02/17 04:00 Prothrombin Time INR IN AM 04/03/17 04:00 Prothrombin Time INR IN AM Labs on day of discharge: Labs from last 24 hours 03/30/17 03/30/17 03/30/17 05:23 05:23 05:23 WBC 2.8 L RBC 3.44 L Hgb 11.2 L Hct 32.9 L MCV 95.6 MCH 33 MCHC 34.0 RDW 14.6 Plt Count 59 L D MPV 11.5 Neut % (Auto) 72.1 Lymph % (Auto) 16.8 L [place] % (Auto) 9.3 Eos % (Auto) 0.7 Baso % (Auto) 0.7 Neut # (Auto) 2.0 Lymph # (Auto) 0.5 L [place] # (Auto) 0.3 Eos # (Auto) 0.0 Baso # (Auto) 0.0 Immature Gran % 0.4 Nucleated RBC % 0.0 Immature Gran # 0.01 Nucleated RBCs # 0.00 Platelet Estimate Decreased Immature Plt Fraction 0.0 Microcytosis 1+ Ovalocytes Few INR 1.8 PT Patient/Control Mix 19.8 Sodium 138 Potassium 3.4 L Chloride 105 Carbon Dioxide 22 Anion Gap 14.4 BUN 15 Creatinine 0.80 GFR Calculation 99 BUN/Creatinine Ratio 18.00 Glucose 73 L Calculated Osmolality 274.7 Calcium 7.9 L Phosphorus 03/30/17 05:20 WBC RBC Hgb Hct MCV MCH MCHC RDW Plt Count MPV Neut % (Auto) Lymph % (Auto) [place] % (Auto) Eos % (Auto) Baso % (Auto) Neut # (Auto) Lymph # (Auto) [place] # (Auto) Eos # (Auto) Baso # (Auto) Immature Gran % Nucleated RBC % Immature Gran # Nucleated RBCs # Platelet Estimate Immature Plt Fraction Microcytosis Ovalocytes INR PT Patient/Control Mix Sodium Potassium Chloride Carbon Dioxide Anion Gap BUN Creatinine GFR Calculation BUN/Creatinine Ratio Glucose Calculated Osmolality Calcium Phosphorus 1.8 L Preliminary micro results at discharge 03/28/17 06:54 Urine Culture - Preliminary Urine,Voided Gram Positive Cocci 03/28/17 02:10 Blood Culture - Preliminary Blood No growth at 1 day 03/28/17 02:10 Blood Culture - Preliminary Blood No growth at 1 day DS: Provider Date of admission: 03/27/17 23:27 Primary care physician: . No PCP Attending physician on admission: Jarad Mayo MD Consults: 03/28/17 00:32 Consult to Physician [CONS] Routine Comment: abdominal pain Consulting Provider: Jeramie Napoles V Consult Notification Comment: spoke with Dr napoles at 0913 on 03-28-17 Consult to Physician [CONS] Routine Comment: abdominal pain Hx. SBO/malrotation Consulting Provider: Gurmeet Newton Consult Notification Comment: talked to Dr Newton at 0908 on 03-28-17 03/28/17 02:25 Consult to Dietitian [CONS] Routine Reason for Dietitian: Dietary Consult 03/28/17 02:45 Consult to Physician [CONS] Routine Comment: HIV pt with fever and SBO Consulting Provider: Nay Eason When should Consulting Provider be notified: Now Person Notified: RONALDO Date Notified: 03/29/17 Time Notified: 09:02 Discharging clinician: Patti Og NP <Neena Min - Last Filed: 03/30/17 17:00> Hospital Course - Time spent with patient Time with patient DS: Greater than 30 minutes (40 minutes spent in dischargeplanning, coordination of care, medicine reconciliation, documentation. ) Diagnosis - Discharge Diagnosis (1) Partial small bowel obstruction Status: Resolved (2) Hypophosphatemia Status: Resolved (3) History of HIV or AIDS Status: Chronic (4) Cirrhosis Status: Chronic (5) Thrombocytopenia Status: Chronic Discharge Plan - Discharge Data Condition at Discharge: Stable Discharge Diet: advance to your usual diet Activity: resume usual activities as tolerated Exam - Constitutional General appearance: no acute distress, under weight - Eye Eye exam: Present: EOMI. Absent: scleral icterus - Respiratory Respiratory exam: Present: clear to auscultation bilaterally - Cardiovascular Cardiovascular exam: Present: regular rate and rhythm - GI/Abdominal GI/Abdominal exam: Present: normal bowel sounds, soft. Absent: tenderness - Extremities Exam Extremities exam: Absent: edema
--- NOTE | 2017-03-30 11:47 | Hospitalist Progress Note ---
Assessment and Plan (1) Abdominal pain Status: Acute Assessment and plan: Pt. denies abdominal pain. Current Visit: Yes Qualifiers: Abdominal location: generalized Qualified Code(s): R10.84 - Generalized abdominal pain (2) Small bowel obstruction, partial Status: Acute Assessment and plan: NG tube removed today. Pt. tolerated well. Symptoms appear to be resolving with conservative management. Continue IVF. Advance to clear liquid diet. Monitor patient. Current Visit: No (3) AIDS (acquired immunodeficiency syndrome), CD4 <=200 Status: Acute Assessment and plan: Meds have not been started. 3 of 4 were available. Current Visit: No (4) Bacteriuria Status: Acute Assessment and plan: Pt on IV Levaquin to cover gram positive cocci noted in urine. Current Visit: Yes Hospitalist: Subjective Interval history: Patient seen and examined this morning. Lab and chart reviewed. Pt. is alert and oriented. Denies any issues overnight. Pt.'s NG was removed this am with no complaints. Pt. states he has had a trial of clear liquids this morning and was successful. Pt. also reports BM this morning. No other complaints. We will continue to monitor. Exam - Constitutional Vitals: Period Temp Pulse Resp BP Sys/Bynum Pulse Ox Last 24 Hr 97.4 F-99.0 F 68-75 18-20 94-102/55-65 97-99 Results - Labs CBC & BMP: 03/30/17 05:23 03/30/17 05:23
--- NOTE | 2017-03-30 12:29 | Physician Query Form ---
CLICK EDIT DOCUMENT TO SELECT QUERY ANSWER --> OK --> SIGN Litzy Waters RN Clinical [employer] W) [phone] (f) [phone] [email or web address] PROVIDERS: Make your selection(s) from the choices in EACH section by typing an "x" and enter comments in the comment section. Please use your independent medical judgment in providing your response. This request does not imply that any particular answer is desired or expected. CLINICAL INDICATORS: (Providers should not edit this section) Based on lab results of WBC=2.8, RBC=3.44, PLT=59. Based on the above, could you clarify the appropriate diagnosis, if significant , that supports the above abnormalities and additional evaluation, monitoring, and/or treatment rendered: ( x) Pt. has pancytopenia ( ) Pt. does not have pancytopenia ( ) Other, please specify: ( ) Clinically unable to determine COMMENTS: PLEASE ALSO DOCUMENT RESPONSE IN PROGRESS NOTES AND/OR DISCHARGE SUMMARY Use of terms such as suspected, likely, or probable (associated with a specific diagnosis that is being evaluated, monitored, or treated as if it exists) are acceptable and can be restated in the discharge summary if not ruled out. MTDD
--- NOTE | 2017-03-30 12:30 | General Surgery Progress Note ---
Assessment and Plan (1) Partial small bowel obstruction Status: Acute Assessment and plan: Appears to have resolved with conservative management. Will try a full liquid diet and then can continue to advance as tolerated. No surgical indications at this time. Current Visit: No Subjective Patient reports: Present: feels better, tolerating liquids well, bowel movement (Patient reports he feels much improved. NG tube has removed and he is tolerating clear liquids without difficulty. Patient a bowel movement yesterday and reports a large bowel movement again today.) Exam - Constitutional Vitals: Period Temp Pulse Resp BP Sys/Bynum Pulse Ox Last 24 Hr 97.4 F-99.0 F 68-75 18-20 94-102/55-65 97-99 General appearance: no acute distress, cachectic - Head Head exam: Present: atraumatic - GI/Abdominal GI/Abdominal exam: Present: normal bowel sounds, soft. Absent: distended, tenderness - Neurological Exam Neurological exam: Present: alert, oriented X3 Speech: Present: normal Results - Labs CBC & BMP: 03/30/17 05:23 03/30/17 05:23
--- NOTE | 2017-03-30 14:05 | Infectious Disease Progress ---
Assessment and Plan (1) Bacteriuria Status: Acute Assessment and plan: Gram-positive cocci isolated from urine however his urinalysis was negative for pyuria. Recommendations: Antibiotic therapy for asymptomatic bacteriuria not indicated. Current Visit: Yes (2) Fever Status: Acute Assessment and plan: No fever for 24 hours. Cultures unremarkable. Recommendations: Monitor temperature curve. Current Visit: Yes (3) Partial small bowel obstruction Status: Acute Current Visit: No (4) AIDS (acquired immunodeficiency syndrome), CD4 <=200 Status: Acute Assessment and plan: patient got all his antiretroviral medications and has resumed them today. Current Visit: No Infectious Disease - PN: Subj Interval history: Patient feeling much better today, no more nausea vomiting and NG tube removed. Had good bowel movement today as well. Tolerating clear liquid diet. Infectious Disease Exam (PN) - Constitutional Vitals: Temp Pulse Resp BP Pulse Ox 98.1 F 75 18 101/65 99 03/30/17 07:29 03/30/17 07:29 03/30/17 07:29 03/30/17 07:29 03/30/17 07:29 General appearance: no acute distress, cachectic Exam: General appearance: no acute distress - Eye Eye exam: Present: EOMI. no icterus Pupils: Present: DIANA - ENT ENT exam: no oral exudates - Respiratory Respiratory exam: vesicular BS, no crepitations or wheezes - Cardiovascular Cardiovascular exam: regular rate and rhythm, no murmurs - GI/Abdominal GI/Abdominal exam: normal bowel sounds, soft, non-tender, no organomegaly or mass - Extremities Exam Extremities exam: no edema - Skin Skin exam: no rash Results - Labs CBC & BMP: 03/30/17 05:23 03/30/17 05:23 Lab Results: I have reviewed the past 24 hour labs
[2017-03-30 16:40] VITALS: BP 107/63
[2017-03-31 13:46] LABS: % CD4 (T Cells) 26 % (32-64); % CD8 (T Cells) 38 % (11-40); 4/8 Ratio 0.7 (>=0.9)
== END 2017-03-30 18:20 | disposition home or self-care (01) | DRG 388 ==
LOC: EDBD → EDUNIT# → N.ED 20:42 → N.EDINP 23:27 → SUATTDRO 23:27 → N.5E 23:45
PROVIDERS: ADMIT Family Medicine; ATTEND Internal Medicine